=== PATIENT | female | born 1980 | race Caucasian/White ===

== ENCOUNTER 2024-08-25 00:34 | Emergency (ER) | payer OTHER ==
[2024-08-25 00:42] VITALS: RESP 18
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
[2024-08-25] MEDS: IPRATROPIUM-ALBUTEROL 3 ML NEB INHALATION STA (02:08)
[2024-08-25] MEDS: ALBUTEROL NEBULIZED 2.5 MG/3 ML INHALATION STA (02:08)
[2024-08-25 02:26] VITALS: PULSE 108
[2024-08-25 02:34] VITALS: BP 129/82; TEMP 97.9
== END 2024-08-25 02:33 | disposition home or self-care (01) ==
LOC: EC 00:34
DX: J98.01 Acute bronchospasm (principal); F17.200 Nicotine dependence, unspecified, uncomplicated; Z88.1 Allergy status to other antibiotic agents; V49.40XA Driver injured in collision with unspecified motor vehicles in traffic accident, initial encounter; Y92.410 Unspecified street and highway as the place of occurrence of the external cause
CPT/HCPCS: 94640; 99284